=== PATIENT | female | born 1960 | race Two or more races ===

== ENCOUNTER 2021-06-07 16:47 | Emergency (ER) | payer MEDICAID ==
[~2021-06-07] VITALS: Ht 180.3 cm; Wt 90.7 kg
[2021-06-07 17:02] VITALS: BP_SYST 148
[2021-06-07] MEDS ORDERED: MAG HYDROX/AL HYDROX/SIMETH 30 ML, DICYCLOMINE HCL 20 MG, LIDOCAINE VISCOUS 2% 15ML (PO... PO ONE ×3 (19:00)
--- NOTE | 2021-06-07 19:20 | NUR ---
PT ARRIVED TO ER WITH COMPLAINTS OF MID UPPER ABDOMINAL PAIN SINCE LAST EVENING. PT STATES 8/10 PAIN WHEN SHE MOVES BUT NO PAIN WHEN SHE IS STILL. FIRST TIME THIS HAS HAPPENED. SHE SATTES SHE HAS BEEN HAVING NORMAL STOOLS. A&OX4
[2021-06-07 19:37] LABS: BASOPHILS % (AUTO) 0.5 % (0.0-2.0); EOSINOPHILS # (AUTO) 0.2 K/uL (0.0-0.4); HEMATOCRIT 38.9 % (36-48); LYMPHOCYTES # (AUTO) 3.2 K/uL (1.0-5.5); LYMPHOCYTES % (AUTO) 50.3 % (20.5-51.5); MEAN CORPUSCULAR HEMOGLOBIN 30 pg (27-31); MEAN CORPUSCULAR HGB CONC 33 % (32-36); MEAN CORPUSCULAR VOLUME 89 fL (79.0-98.0); MONOCYTES # (AUTO) 0.5 K/uL (0.0-1.0); MONOCYTES % (AUTO) 8.2 % (1.7-9.3); NEUTROPHILS # (AUTO) 2.4 K/uL (1.8-7.7); PLATELET COUNT (AUTO) 287 K/uL (130-430); RED BLOOD CELL COUNT(AUTO) 4.36 MIL/uL (4.2-6.2); RED CELL DISTRIBUTION WIDTH 13.4 % (9.0-15.0); WHITE BLOOD COUNT (AUTO) 6.4 K/uL (4.8-10.8)
[2021-06-07 19:42] LABS: CALCIUM 8.9 mg/dL (8.4-11.0); CREATININE 0.81 mg/dL (0.55-1.30); POTASSIUM 3.6 mmol/L (3.5-5.1)
[2021-06-07 19:48] LABS: ALBUMIN 3.5 g/dL (3.4-4.8); TOTAL BILIRUBIN 0.3 mg/dL (0.0-1.0)
--- NOTE | 2021-06-07 19:50 | NUR ---
ER at bedside examining patient.
[2021-06-07] MEDS ORDERED: ACET325C6 PO (20:03)
[2021-06-07] MEDS ORDERED: GABA-529 PO (20:03)
[2021-06-07] MEDS ORDERED: LIDO1ADH71 TD (20:03)
[2021-06-07 20:33] VITALS: BP_SYST 134
--- NOTE | 2021-06-07 20:33 | NUR ---
Patient given written and verbal discharge instructions and verbalizes understanding. ER MD discussed with patient the results and treatment provided. Patient in stable condition. ID arm band removed. Rx of acetaminophen, gabapentin, lidocaine given. Patient educated on pain management and to follow up with PMD. Pain Scale 3/10. Opportunity for questions provided and answered. Medication side effect fact sheet provided.
== END 2021-06-07 20:33 | disposition home or self-care (01) ==
LOC: SED 16:47
DX: M94.0 Chondrocostal junction syndrome [Tietze] (principal); I10 Essential (primary) hypertension; Z88.6 Allergy status to analgesic agent; Z79.899 Other long term (current) drug therapy
CPT/HCPCS: 36415; 80053; 83690; 85025; 93005; 99284; J2001

== ENCOUNTER 2023-01-16 09:27 | Emergency (ER) | payer MEDICAID ==
[~2023-01-16] VITALS: Ht 165.1 cm; Wt 86.2 kg
[~2023-01-16 09:27] MED LIST: ACET325C6 PO; GABA-529 PO; LIDO1ADH71 TD
[2023-01-16 09:37] VITALS: BP_SYST 177
[2023-01-16] MEDS ORDERED: DIPHENHYDRAMINE INJ 50 MG/ML VIAL IVP ONE (09:45)
[2023-01-16] MEDS ORDERED: FAMOTIDINE PF 20 MG/2 ML VIAL IVP ONE (09:45)
[2023-01-16] MEDS ORDERED: methylPREDNISolone SOD SUCC/PF 62.5 MG/ML VIAL IVP ONE (09:45)
[2023-01-16 10:01] LABS: BASOPHILS % (AUTO) 0.4 % (0.0-2.0); EOSINOPHILS # (AUTO) 0.1 K/uL (0.0-0.4); EOSINOPHILS % (AUTO) 1.3 % (0.0-4.0); HEMATOCRIT 36.7 % (36-48); HEMOGLOBIN 12.3 g/dL (12.0-16.0); LYMPHOCYTES # (AUTO) 1.6 K/uL (1.0-5.5); MEAN CORPUSCULAR HEMOGLOBIN 30 pg (27-31); MEAN CORPUSCULAR HGB CONC 34 % (32-36); MEAN CORPUSCULAR VOLUME 88 fL (79.0-98.0); MONOCYTES # (AUTO) 0.5 K/uL (0.0-1.0); MONOCYTES % (AUTO) 11.1 % (1.7-9.3); NEUTROPHILS # (AUTO) 2.7 K/uL (1.8-7.7); NEUTROPHILS % (AUTO) 54.2 % (40.0-70.0); PLATELET COUNT (AUTO) 276 K/uL (130-430); RED BLOOD CELL COUNT(AUTO) 4.16 MIL/uL (4.2-6.2); RED CELL DISTRIBUTION WIDTH 12.9 % (9.0-15.0); WHITE BLOOD COUNT (AUTO) 4.9 K/uL (4.8-10.8)
[2023-01-16 10:24] LABS: ALBUMIN 3.3 g/dL (3.4-4.8); TOTAL BILIRUBIN 0.5 mg/dL (0.0-1.0)
[2023-01-16 10:29] LABS: CALCIUM 8.2 mg/dL (8.4-11.0); CREATININE 0.73 mg/dL (0.55-1.30)
[2023-01-16] MEDS ORDERED: PRED20TA PO (12:09)
[2023-01-16] MEDS ORDERED: FAMO-132 PO (12:09)
[2023-01-16] MEDS ORDERED: BEN50 PO (12:10)
[2023-01-16 12:32] VITALS: BP_SYST 144
== END 2023-01-16 12:31 | disposition home or self-care (01) ==
LOC: SED 09:27
DX: R22.0 Localized swelling, mass and lump, head (principal); T50.1X5A Adverse effect of loop [high-ceiling] diuretics, initial encounter; I10 Essential (primary) hypertension; E11.9 Type 2 diabetes mellitus without complications; Z88.6 Allergy status to analgesic agent; Z79.899 Other long term (current) drug therapy; Y92.89 Other specified places as the place of occurrence of the external cause
CPT/HCPCS: 99284; 96374; 96375; 80053; 82962; 85025; 36415; J1200; J3490; J2930